=== PATIENT | male | born 1960 | race Caucasian/White ===

== ENCOUNTER 2017-02-27 06:55 | Day surgery (SDC) | payer OTHER ==
[2017-02-26 14:49] VITALS: BMI 32.1
[2017-02-27] MEDS ORDERED: LIDOCAINE HCL 2% (20ML MULTI-DOSE VIAL) NR ONE (07:47)
[2017-02-27] MEDS ORDERED: PROPOFOL 20 ML ONE ×3 (07:48)
[2017-02-27 08:55] VITALS: TEMP 97.6
[2017-02-27 15:07] VITALS: BP 102/81; PULSE 62
== END 2017-02-27 10:05 | disposition home or self-care (01) ==
LOC: JASU-ENDO 06:55
PROVIDERS: ATTEND Internal Medicine Gastroenterology
PROC: 0DJD8ZZ Inspection of Lower Intestinal Tract, Via Natural or Artificial Opening Endoscopic (ICD-10-PCS; principal; 2017-02-27 08:00)
DX: Z12.11 Encounter for screening for malignant neoplasm of colon (principal); K64.8 Other hemorrhoids